=== PATIENT | male | born 1945 | race Caucasian/White ===

== ENCOUNTER → 2020-06-26 | Outpatient (CLI) | payer MEDICARE ==
--- NOTE | 2020-06-26 11:33 | Diagnostic Imaging Report ---
EXAM: HAND BILATERAL 3 OR MORE VIEWS DATE: 06/26/2020 10:42 AM INDICATION: Bilateral hand pain COMPARISON: None FINDINGS: There is no evidence for acute fracture or dislocation. Bony mineralization is within normal limits. No focal lytic or blastic abnormality is identified. No osseous erosions are appreciated. The surrounding soft tissues are unremarkable without evidence for radiopaque foreign body. IMPRESSION: No acute radiographic abdomen on the identified within the bilateral hands. Signed by: Dr. Ralph Almanzar MD on 06/26/2020 11:30 AM
== END ==
LOC: RAD 10:33
PROVIDERS: ATTEND Internal Medicine
DX: M79.642 Pain in left hand (principal); M79.641 Pain in right hand